=== PATIENT | female | born 1980 | race Caucasian/White ===

== ENCOUNTER 2019-04-02 21:15 | Emergency (ER) | payer OTHER ==
[~2019-04-02] VITALS: Ht 165.1 cm; Wt 92.7 kg
[2019-04-02 23:12] VITALS: BP 135/73
== END 2019-04-02 23:56 | disposition home or self-care (01) ==
LOC: ED 22:19
DX: E86.0 Dehydration (principal); G43.A1 Cyclical vomiting, in migraine, intractable; R10.13 Epigastric pain
CPT/HCPCS: 36415; 80053; 83690; 84703; 85025; 96361; 96372; 96374; 96375; 99283; J1885; J2405; J2550; J3490; J7030